=== PATIENT | male | born 1980 | race Caucasian/White ===

== ENCOUNTER 2024-02-27 19:52 | Emergency (ER) | payer SELFPAY ==
[~2024-02-27] VITALS: Ht 177.8 cm; Wt 108.9 kg
[2024-02-27 19:57] VITALS: BP 144/82; PULSE 88; RESP 16; TEMP 97.4; O2SAT 99
== END 2024-02-27 20:23 ==
LOC: MED 19:52
DX: Z02.89 Encounter for other administrative examinations (principal); V49.9XXA Car occupant (driver) (passenger) injured in unspecified traffic accident, initial encounter; Y93.89 Activity, other specified; Y92.89 Other specified places as the place of occurrence of the external cause; Y99.8 Other external cause status
CPT/HCPCS: 99283